=== PATIENT | male | born 1975 | race Hispanic/Latino ===

== ENCOUNTER 2018-07-02 07:39 | Day surgery (SDC) | payer BC ==
[2018-07-01 12:21] LABS: BASOPHILS % (AUTO) 0.6 % (0.0-5.0); EOSINOPHILS % (AUTO) 1.2 % (0.0-8.0); HEMATOCRIT 41.8 % (42-54); MEAN CORPUSCULAR HEMOGLOBIN 30.4 pg (27.0-33.0); MEAN CORPUSCULAR VOLUME 86.9 fL (79-99); MONOCYTES % (AUTO) 6.4 % (3.0-13.0); NEUTROPHILS % (AUTO) 55.8 % (40.0-77.0); PLATELET COUNT (AUTO) 199 K/uL (130-400); RED BLOOD CELL COUNT(AUTO) 4.81 MIL/uL (4.50-6.20); RED CELL DISTRIBUTION WIDTH 13.9 % (11.0-15.5); WHITE BLOOD COUNT (AUTO) 6.8 K/uL (4.8-10.8)
[2018-07-01 12:22] VITALS: BP 119/75
[2018-07-01 12:28] LABS: CREATININE 0.7 mg/dL (0.5-1.5); POTASSIUM 4.3 mmol/L (3.5-5.1)
[2018-07-02] VITALS (14 sets, daily range): BP systolic 113–129; BP diastolic 59–77
[~2018-07-02] VITALS: Ht 177.8 cm; Wt 92.7 kg
[2018-07-02] MEDS ORDERED: LACTATED RINGERS 1000ML 1,000 ML IV ONE (08:25)
[2018-07-02] MEDS: CEFAZOLIN SODIUM 1 GM VIAL IVP PRN ×2 (08:43→08:55)
[2018-07-02] MEDS ORDERED: SUCCINYLCHOLINE CHLORIDE 20 MG/ML 10 ML VIAL ONE (08:45)
[2018-07-02] MEDS ORDERED: PROPOFOL 10 MG/ML 20ML VIAL IV ONE (08:45)
[2018-07-02] MEDS ORDERED: ROCURONIUM 10MG/1ML SYR 10 MG/ML ML ONE (08:45)
[2018-07-02] MEDS ORDERED: LIDOCAINE PF 2% 5ML ABBOJECT ONE (08:45)
[2018-07-02] MEDS ORDERED: ROPIVACAINE 0.5% 5MG/ML 30ML IJ ONE ×2 (08:45→08:49)
[2018-07-02] MEDS ORDERED: FENTANYL CITRATE PF 50 MCG/1 ML 2ML VIAL ONE (08:46)
[2018-07-02] MEDS ORDERED: DEXAMETHASONE SOD PHOSPHATE 4 MG/ML 1ML VIAL ONE (08:50)
[2018-07-02] MEDS ORDERED: TUMERIC PO (09:13)
[2018-07-02] MEDS ORDERED: LORA0.5T2 PO (09:13)
[2018-07-02] MEDS ORDERED: ASPI-555 PO (09:13)
[2018-07-02] MEDS ORDERED: MULT-1203 PO (09:13)
[2018-07-02] MEDS ORDERED: PHYT1CAP PO (09:13)
[2018-07-02] MEDS ORDERED: SERT25TA5 PO (09:13)
[2018-07-02] MEDS ORDERED: KRIL1CAP18 PO (09:13)
[2018-07-02] MEDS ORDERED: METO-408 PO (09:13)
[2018-07-02] MEDS ORDERED: EPHEDRINE SULFATE 50 MG/ML AMPULE ONE (09:17)
[2018-07-02] MEDS ORDERED: GLYCOPYRROLATE 1 MG/5 ML SYRINGE ONE (10:16)
[2018-07-02] MEDS ORDERED: KETOROLAC TROMETHAMINE 30MG/ML ONE (10:16)
[2018-07-02] MEDS ORDERED: NEOSTIGMINE 5MG/5ML SYR IV ONE (10:16)
[2018-07-02] MEDS ORDERED: ONDANSETRON HCL 4 MG/2 ML VIAL ONE (10:19)
[2018-07-02] MEDS ORDERED: MEPERIDINE-PF 25 MG/ML SYG ONE ×2 (10:46→11:01)
== END 2018-07-02 12:23 | disposition home or self-care (01) ==
LOC: DAH 07:39
PROVIDERS: ATTEND Orthopaedic Surgery
DX: M75.102 Unspecified rotator cuff tear or rupture of left shoulder, not specified as traumatic (principal); M75.42 Impingement syndrome of left shoulder; Z68.37 Body mass index [BMI] 37.0-37.9, adult; Z79.899 Other long term (current) drug therapy; Z98.890 Other specified postprocedural states; I10 Essential (primary) hypertension; I45.10 Unspecified right bundle-branch block; E78.5 Hyperlipidemia, unspecified; F41.9 Anxiety disorder, unspecified
CPT/HCPCS: 29826; 29827; 36415; 80048; 85025; A4248; A4649 ×5; A4930; A6207; C1713 ×2; G0168; J0330; J0690; J1100; J1885; J2001; J2175 ×2; J2405; J2704; J2710; J2795 ×2; J3010; J3490 ×2; J7120 ×2

== ENCOUNTER 2020-06-01 07:31 | Day surgery (SDC) | payer OTHER ==
[2020-05-24 12:16] LABS: BASOPHILS % (AUTO) 0.5 % (0.0-5.0); EOSINOPHILS % (AUTO) 1.8 % (0.0-8.0); HEMATOCRIT 43.6 % (42-54); LYMPHOCYTES % (AUTO) 34.7 % (21.0-51.0); MEAN CORPUSCULAR HEMOGLOBIN 29.3 pg (27.0-33.0); MEAN CORPUSCULAR HGB CONC 34.9 g/dL (32.0-36.0); MONOCYTES % (AUTO) 6.6 % (3.0-13.0); NEUTROPHILS % (AUTO) 56.2 % (40.0-77.0); PLATELET COUNT (AUTO) 206 K/uL (130-400); RED BLOOD CELL COUNT(AUTO) 5.19 MIL/uL (4.50-6.20); RED CELL DISTRIBUTION WIDTH 12.4 % (11.0-15.5); WHITE BLOOD COUNT (AUTO) 6.3 K/uL (4.8-10.8)
[2020-05-24 12:40] LABS: CREATININE 0.7 mg/dL (0.5-1.5); POTASSIUM 4.3 mmol/L (3.5-5.1)
[2020-05-31 10:34] VITALS: BP 137/89
[2020-06-01] VITALS (17 sets, daily range): BP systolic 100–126; BP diastolic 57–80
[~2020-06-01] VITALS: Ht 175.3 cm; Wt 96.2 kg
[~2020-06-01 07:31] MED LIST: ASPI-556 PO; CEFA500C3 PO; KRIL1CAP18 PO; LACTATED RINGERS 1000ML 1,000 ML IV SCH; METO-408 PO; MULT-1203 PO; PHYT1CAP PO
[2020-06-01] MEDS: CEFAZOLIN SODIUM 1 GM VIAL IVP SCH ×2 (08:30→09:55)
[2020-06-01] MEDS ORDERED: FENTANYL CITRATE PF 50 MCG/1 ML 2ML VIAL ONE (08:50)
[2020-06-01] MEDS ORDERED: LIDOCAINE PF 2% 5ML ABBOJECT ONE (08:50)
[2020-06-01] MEDS ORDERED: SUCCINYLCHOLINE CHLORIDE 20 MG/ML 10 ML VIAL ONE (08:50)
[2020-06-01] MEDS ORDERED: ROPIVACAINE 0.5% 5MG/ML 30ML IJ ONE (08:50)
[2020-06-01] MEDS ORDERED: PROPOFOL 10 MG/ML 20ML VIAL IV ONE (08:50)
[2020-06-01] MEDS ORDERED: ROCURONIUM 10MG/1ML SYR 10 MG/ML ML ONE (08:51)
[2020-06-01] MEDS ORDERED: GLYCOPYRROLATE 1 MG/5 ML SYRINGE ONE (11:04)
[2020-06-01] MEDS ORDERED: NEOSTIGMINE 5MG/5ML SYR IV ONE (11:04)
[2020-06-01] MEDS ORDERED: KETOROLAC TROMETHAMINE 30MG/ML ONE (11:05)
--- NOTE | 2020-06-01 13:10 | NUR ---
DISCHARGE VERBAL AND WRITTEN DISCHARGE INSTRUCTIONS REVIEWED WITH PATIENT AND SPOUSE- CITLALI. NO NEW PRESCRIPTIONS GIVEN. VERBALIZED UNDERSTANDING. PATIENT STATES NO COMPLAINTS OF PAIN. RIGHT SHOULD DRESSING- CLEAN, DRY, AND INTACT. RIGHT ARM IN SLING. IV REMOVED- CATHETER INTACT. PATIENT DISCHARGED VIA WHEELCHAIR ACCOMPANIED BY SPOUSE TO PRIVATE VEHICLE.
== END 2020-06-01 13:15 ==
LOC: DAH 07:31
PROVIDERS: ATTEND Orthopaedic Surgery
DX: S46.191A Other injury of muscle, fascia and tendon of long head of biceps, right arm, initial encounter (principal); M75.121 Complete rotator cuff tear or rupture of right shoulder, not specified as traumatic; E78.00 Pure hypercholesterolemia, unspecified; I10 Essential (primary) hypertension; X58.XXXA Exposure to other specified factors, initial encounter; Y93.89 Activity, other specified; Y92.89 Other specified places as the place of occurrence of the external cause; Y99.8 Other external cause status; Z20.828 Contact with and (suspected) exposure to other viral communicable diseases
CPT/HCPCS: 23430; 29827; 36415; 64415; 76942; 80048; 85025; A4215; A4216; A4221; A4222; A4223 ×2; A4452; A4565; A4606; A4649 ×4; A4663; A4930 ×2; A6223; A6260; C1713; C9803; J0330; J0690; J1885; J2001; J2704; J2710; J2795; J3010; J3490; J7030; J7120 ×2; U0003

== ENCOUNTER 2020-06-02 02:27 | Emergency (ER) | payer OTHER ==
[~2020-06-02 02:27] MED LIST changes: -LACTATED RINGERS 1000ML 1,000 ML IV SCH
[2020-06-02] MEDS ORDERED: ONDANSETRON HCL 4 MG/2 ML VIAL ONE (02:56)
[2020-06-02] MEDS ORDERED: KETOROLAC TROMETHAMINE 30MG/ML ONE (02:57)
[2020-06-02] MEDS ORDERED: MORPHINE SULFATE 4 MG/1ML SYG ONE (02:57)
== END 2020-06-02 04:29 | disposition home or self-care (01) ==
LOC: EDH 02:27
DX: M25.511 Pain in right shoulder (principal); I10 Essential (primary) hypertension
CPT/HCPCS: 93005; 96365; 96366; 96375; 99284; J1885; J2270; J2405

== ENCOUNTER 2022-12-04 22:30 | Observation (INO) | payer OTHER ==
[~2022-12-04] VITALS: Ht 175.3 cm; Wt 105.3 kg
[2022-12-04] MEDS ORDERED: NITROGLYCERIN 1GM OINT 1 INCH/1GM TD ONE ×2 (22:42→23:30)
[2022-12-04] MEDS ORDERED: ASPIRIN 325MG TAB ONE (22:42)
[2022-12-04] MEDS ORDERED: ACETAMINOPHEN 500 MG TABLET ONE (22:43)
[2022-12-04 22:53] LABS: BASOPHILS % (AUTO) 0.4 % (0.0-5.0); EOSINOPHILS % (AUTO) 0.7 % (0.0-8.0); HEMATOCRIT 43.3 % (42-54); LYMPHOCYTES % (AUTO) 21.9 % (21.0-51.0); MEAN CORPUSCULAR HGB CONC 34.6 g/dL (32.0-36.0); MEAN CORPUSCULAR VOLUME 83.8 fL (79-99); MONOCYTES % (AUTO) 6.3 % (3.0-13.0); NEUTROPHILS % (AUTO) 70.4 % (40.0-77.0); PLATELET COUNT (AUTO) 184 K/uL (130-400); RED BLOOD CELL COUNT(AUTO) 5.17 MIL/uL (4.50-6.20); RED CELL DISTRIBUTION WIDTH 12.5 % (11.0-15.5)
[2022-12-04 23:06] LABS: CREATININE 0.8 mg/dL (0.5-1.5); POTASSIUM 3.9 mmol/L (3.5-5.1)
[2022-12-04 23:11] LABS: ALBUMIN 4.5 g/dL (3.5-5.0); MAGNESIUM 2.2 mg/dL (1.80-2.40); TOTAL PROTEIN, SERUM 7.9 g/dL (6.0-8.3)
[2022-12-04] MEDS ORDERED: ACETAMINOPHEN 500 MG TABLET PO ONE (23:30)
[2022-12-04] MEDS ORDERED: ASPIRIN 325MG TAB PO ONE (23:30)
[2022-12-05 00:10] LABS: APPEARANCE,URINE CLEAR (CLEAR); BILIRUBIN,URINE NEGATIVE (NEGATIVE); COLOR,URINE COLORLESS (YELLOW); GLUCOSE, URINE (UA) NEGATIVE (NEGATIVE); KETONES,URINE 10 mg/dL (NEGATIVE); LEUKOCYTE ESTERASE ,URINE NEGATIVE Leu/uL (NEGATIVE); NITRATE,URINE NEGATIVE (NEGATIVE); OCCULT BLOOD,URINE SMALL (NEGATIVE); PH,URINE 6.5 (5.0-8.0); PROTEIN,URINE NEGATIVE (NEGATIVE); UROBILINOGEN,URINE 0.2 mg/dL (0.2-1.0)
[2022-12-05 00:19] LABS: WBC,URINE 0-1 /HPF (0-1)
[2022-12-05] MEDS ORDERED: ASPIRIN 325MG TAB PO ONE (00:30)
[2022-12-05] MEDS ORDERED: NITROGLYCERIN 0.4 MG SL TAB SL PRN (00:30)
[2022-12-05] MEDS ORDERED: CLONIDINE HCL 0.1 MG TABLET PO PRN (00:30)
[2022-12-05] MEDS ORDERED: HYDRALAZINE 20MG/ML VIAL IV PRN (00:30)
[2022-12-05] MEDS ORDERED: ACETAMINOPHEN 650 MG SUPPOSITORY RC PRN (00:30)
[2022-12-05] MEDS ORDERED: TEMAZEPAM 15 MG CAPSULE PO PRN (00:30)
[2022-12-05] MEDS ORDERED: LABETALOL 20MG SYG IV PRN (00:30)
[2022-12-05] MEDS ORDERED: ONDANSETRON 4MG INJ IVP PRN (00:30)
[2022-12-05] MEDS: NITROGLYCERIN 1GM OINT 1 INCH/1GM TD SCH ×3 (00:30→14:23)
[2022-12-05] MEDS ORDERED: AEC81 PO (01:39)
[2022-12-05] MEDS ORDERED: [UNRECOGNIZED DRUG - CODE] PO (01:39)
[2022-12-05] MEDS ORDERED: ASHW300C2 PO (01:39)
[2022-12-05] MEDS ORDERED: ZINC220T4 PO (01:39)
[2022-12-05] MEDS ORDERED: OMEP40CA21 PO (01:39)
[2022-12-05] MEDS ORDERED: FISH1CAP50 PO (01:39)
[2022-12-05] MEDS ORDERED: MAGN100T5 PO (01:39)
[2022-12-05] MEDS ORDERED: METO-408 PO (01:39)
[2022-12-05] MEDS: ACETAMINOPHEN 325 MG TAB PO PRN ×2 (03:48→15:53)
[2022-12-05] MEDS: INSULIN HUMULIN R 100 UNIT/ML 3ML SQ SCH ×2 (06:41→11:30)
[2022-12-05 08:00] VITALS: BP 127/79
[2022-12-05] MEDS: FAMOTIDINE 20MG TAB PO SCH ×2 (09:51→20:16)
[2022-12-05] MEDS: METOPROLOL SUCCINATE 25 MG TAB.SR.24H PO SCH (09:51)
[2022-12-05] MEDS: FISH OIL 1000 MG/CAP PO SCH (09:52)
[2022-12-05] MEDS: ASPIRIN 81MG CHEW TAB PO SCH (09:52)
[2022-12-05] MEDS: ENOXAPARIN SODIUM 30 MG/0.3 ML SQ SCH (09:53)
[2022-12-05 12:10] VITALS: BP 139/87
[2022-12-05 16:00] VITALS: BP 125/78
[2022-12-05 20:00] VITALS: BP 102/65
[2022-12-05] MEDS ORDERED: SIMVASTATIN 20 MG TABLET PO SCH (21:00)
[2022-12-06] VITALS: BP 110/61
[2022-12-06 00:53] LABS: CHOLESTEROL 156 mg/dL (<200); HDL CHOLESTEROL 65 mg/dL (29-71); LDL DIRECT 75 mg/dL (0-99); TRIGLYCERIDES 67 mg/dL (30-200)
[2022-12-06 04:00] VITALS: BP 125/84
[2022-12-06 04:38] LABS: HEMATOCRIT 40.5 % (42-54); MEAN CORPUSCULAR HGB CONC 34.6 g/dL (32.0-36.0); PLATELET COUNT (AUTO) 171 K/uL (130-400); RED BLOOD CELL COUNT(AUTO) 4.82 MIL/uL (4.50-6.20); RED CELL DISTRIBUTION WIDTH 13.1 % (11.0-15.5); WHITE BLOOD COUNT (AUTO) 6.1 K/uL (4.8-10.8)
[2022-12-06 05:02] LABS: CREATININE 0.8 mg/dL (0.5-1.5); MAGNESIUM 2.2 mg/dL (1.80-2.40); PHOSPHORUS 3.8 mg/dL (2.5-4.9); POTASSIUM 4.3 mmol/L (3.5-5.1)
[2022-12-06 05:12] LABS: B-TYPE NATRIURETIC PEPTIDE < 5 pg/mL (0-100)
[2022-12-06 08:00] VITALS: BP 116/77
[2022-12-06] MEDS: FAMOTIDINE 20MG TAB PO SCH (09:00)
[2022-12-06] MEDS: FISH OIL 1000 MG/CAP PO SCH (09:00)
[2022-12-06] MEDS: ASPIRIN 81MG CHEW TAB PO SCH (09:00)
[2022-12-06] MEDS: METOPROLOL SUCCINATE 25 MG TAB.SR.24H PO SCH (09:18)
[2022-12-06] MEDS: REGADENOSON 0.4 MG/5 ML PF SYG IVP SCH ×2 (11:30→17:01)
[2022-12-06 12:00] VITALS: BP 140/84
[2022-12-06 16:00] VITALS: BP 141/92
[2022-12-06] MEDS: ENOXAPARIN SODIUM 30 MG/0.3 ML SQ SCH (16:02)
[2022-12-06] MEDS: ACETAMINOPHEN 325 MG TAB PO PRN (16:03)
== END 2022-12-06 18:50 | disposition home or self-care (01) ==
LOC: EDH 22:30 → EDHIP 12-05 00:23 → 4DH 12-05 03:05
PROVIDERS: ADMIT Internal Medicine; ATTEND Internal Medicine
DX: I20.0 Unstable angina (principal); I10 Essential (primary) hypertension; K21.9 Gastro-esophageal reflux disease without esophagitis; E78.00 Pure hypercholesterolemia, unspecified; E78.5 Hyperlipidemia, unspecified; I45.10 Unspecified right bundle-branch block; F41.9 Anxiety disorder, unspecified; Z79.899 Other long term (current) drug therapy
CPT/HCPCS: 82550 ×4; 83735 ×2; 84484 ×4; 80053; 85025; 36415 ×3; 71045; 93005; 96372 ×2; 99285; 83874 ×3; 82948 ×2; 81001; 93306; 93356; 84100; 80061; 80048; 83880; 85027; 93017; 78452; G0378 ×39; J1650 ×2; J2785; A9500 ×2; 96374

== ENCOUNTER → 2023-01-08 | Outpatient (CLI) | payer OTHER ==
[~2023-01-08] MED LIST changes: +AEC81 PO; +ASHW300C2 PO; +FISH1CAP50 PO; +IOHEXOL 350 MG/ML 100ML INFUS..BTL IV ONE; +MAGN100T5 PO; +OMEP40CA21 PO; +ZINC220T4 PO; +[UNRECOGNIZED DRUG - CODE] PO
== END | disposition home or self-care (01) ==
LOC: RAH 09:32
PROVIDERS: ATTEND Internal Medicine Cardiovascular Disease
DX: I20.9 Angina pectoris, unspecified (principal); I25.9 Chronic ischemic heart disease, unspecified
CPT/HCPCS: 75574; Q9967

== ENCOUNTER 2023-10-31 18:57 | Emergency (ER) | payer OTHER ==
[~2023-10-31] VITALS: Ht 175.3 cm; Wt 110.7 kg
[~2023-10-31 18:57] MED LIST changes: -IOHEXOL 350 MG/ML 100ML INFUS..BTL IV ONE
[2023-10-31] MEDS: KETOROLAC 30MG VIAL (30MG/ML) IM ONE (21:59)
[2023-10-31 22:00] VITALS: BP 142/52; PULSE 74; RESP 14; O2SAT 98
== END 2023-10-31 22:04 | disposition home or self-care (01) ==
LOC: EDH 18:57
DX: M54.41 Lumbago with sciatica, right side (principal); M54.16 Radiculopathy, lumbar region; I10 Essential (primary) hypertension; E78.00 Pure hypercholesterolemia, unspecified; Z79.82 Long term (current) use of aspirin; Z79.899 Other long term (current) drug therapy
CPT/HCPCS: 99285; 72131; 96372; J1885

== ENCOUNTER → 2025-06-06 | Outpatient (CLI) | payer BC ==
[2025-06-06 09:16] LABS: ASPARTATE AMINOTRANSFERASE 23.0 U/L (10-37); CREATININE 0.8 mg/dL (0.5-1.3); GLOMERULAR FILTR. RATE CALC 106.0 mL/min (>90); GLUCOSE,RANDOM 104.0 mg/dL (70-105); SODIUM SERUM 139.0 mmol/L (136-145); TOTAL PROTEIN, SERUM 7.0 g/dL (6.0-8.3); UREA NITROGEN, BLOOD 18.0 mg/dL (7-18)
== END | disposition home or self-care (01) ==
LOC: LAB 08:19
PROVIDERS: ATTEND Family Medicine
DX: I10 Essential (primary) hypertension (principal)
CPT/HCPCS: 36415; 80053